=== PATIENT | male | born 1955 | race Caucasian/White ===

== ENCOUNTER 2019-03-08 15:14 | Inpatient (IN) | payer SELFPAY ==
[~2019-03-08] VITALS: Ht 188 cm; Wt 66.5 kg
[2019-03-08] MEDS ORDERED: SODIUM CHLORIDE 0.9% 1000ML 1,000 ML IV ONE ×2 (15:46→16:39)
[2019-03-08 15:50] LABS: BASOPHILS % (AUTO) 0.6 % (0.0-5.0); EOSINOPHILS % (AUTO) 7.7 % (0.0-8.0); HEMATOCRIT 40.7 % (42-54); LYMPHOCYTES % (AUTO) 6.5 % (21.0-51.0); MEAN CORPUSCULAR HEMOGLOBIN 33.1 pg (27.0-33.0); MEAN CORPUSCULAR HGB CONC 34.2 g/dL (32.0-36.0); MEAN CORPUSCULAR VOLUME 96.8 fL (79-99); MONOCYTES % (AUTO) 8.2 % (3.0-13.0); NUCLEATED RED BLOOD CELLS 0.1 % (0.0-0.19); PLATELET COUNT (AUTO) 271 K/uL (130-400); RED BLOOD CELL COUNT(AUTO) 4.21 MIL/uL (4.50-6.20); RED CELL DISTRIBUTION WIDTH 12.3 % (11.0-15.5); WHITE BLOOD COUNT (AUTO) 8.5 K/uL (4.8-10.8)
[2019-03-08 16:02] LABS: CREATININE 0.9 mg/dL (0.5-1.5)
[2019-03-08 16:03] LABS: INR 1.09 (0.85-1.15); PARTIAL THROMBOPLASTIN TIME 28.4 SEC (26.3-35.5); PROTHROMBIN TIME 11.4 SEC (9.6-11.6)
[2019-03-08 16:07] LABS: ALBUMIN 3.6 g/dL (3.5-5.0); BILIRUBIN,TOTAL 0.9 mg/dL (0.2-1.0); TOTAL PROTEIN, SERUM 7.2 g/dL (6.0-8.3)
[2019-03-08] MEDS ORDERED: ONDANSETRON HCL 4 MG/2 ML VIAL ONE ×2 (16:41→16:44)
[2019-03-08] MEDS ORDERED: MORPHINE SULFATE 4 MG/1ML SYG ONE ×2 (16:41→16:44)
[2019-03-08] MEDS ORDERED: IOHEXOL-350 75 ML VIAL IV ONE (17:36)
[2019-03-08] MEDS ORDERED: ONDANSETRON HCL 4 MG/2 ML VIAL IV PRN (18:45)
[2019-03-08] MEDS: FAMOTIDINE/PF 20 MG/2 ML VIAL IV SCH (21:00)
[2019-03-09 00:50] VITALS: BP 142/79
[2019-03-09 06:37] LABS: BASOPHILS % (AUTO) 0.8 % (0.0-5.0); EOSINOPHILS % (AUTO) 9.7 % (0.0-8.0); HEMATOCRIT 35.1 % (42-54); LYMPHOCYTES % (AUTO) 10.8 % (21.0-51.0); MEAN CORPUSCULAR HGB CONC 34.2 g/dL (32.0-36.0); MEAN CORPUSCULAR VOLUME 96.6 fL (79-99); MONOCYTES % (AUTO) 11.3 % (3.0-13.0); NEUTROPHILS % (AUTO) 67.4 % (40.0-77.0); PLATELET COUNT (AUTO) 251 K/uL (130-400); RED BLOOD CELL COUNT(AUTO) 3.64 MIL/uL (4.50-6.20); RED CELL DISTRIBUTION WIDTH 12.2 % (11.0-15.5); WHITE BLOOD COUNT (AUTO) 6.6 K/uL (4.8-10.8)
[2019-03-09 06:57] LABS: CREATININE 0.8 mg/dL (0.5-1.5); POTASSIUM 3.9 mmol/L (3.5-5.1)
[2019-03-09 07:30] VITALS: BP 122/69
[2019-03-09] MEDS: FAMOTIDINE/PF 20 MG/2 ML VIAL IV SCH ×2 (08:58→21:31)
[2019-03-09] MEDS: ENOXAPARIN SODIUM 40 MG/0.4 ML SYRINGE SQ SCH (08:59)
[2019-03-09] MEDS: SODIUM CHLORIDE 0.9% 1000ML 1,000 ML IV SCH ×4 (09:00→18:32)
[2019-03-09 11:00] VITALS: BP 119/69
[2019-03-09] MEDS: MORPHINE SULFATE 2 MG/ML 1ML SYG IVP PRN (15:16)
[2019-03-09 16:00] VITALS: BP 117/69
[2019-03-09 20:26] VITALS: BP 139/88
[2019-03-09 23:46] VITALS: BP 133/78
[2019-03-10 03:24] VITALS: BP 122/73
[2019-03-10 05:13] LABS: HEMATOCRIT 33.2 % (42-54); MEAN CORPUSCULAR HGB CONC 33.7 g/dL (32.0-36.0); MEAN CORPUSCULAR VOLUME 97.9 fL (79-99); PLATELET COUNT (AUTO) 201 K/uL (130-400); RED BLOOD CELL COUNT(AUTO) 3.39 MIL/uL (4.50-6.20); RED CELL DISTRIBUTION WIDTH 12.3 % (11.0-15.5); WHITE BLOOD COUNT (AUTO) 5.2 K/uL (4.8-10.8)
[2019-03-10 05:35] LABS: CREATININE 0.7 mg/dL (0.5-1.5); POTASSIUM 3.7 mmol/L (3.5-5.1)
[2019-03-10 05:38] LABS: BASOPHILS % (MANUAL) 1 % (0-2); EOSINOPHILS % (MANUAL) 21 % (1-6); LYMPHOCYTES % (MANUAL) 9 % (22-44); MAN.DIFF COMMENT-IMPRESSION MANUAL DIFFERENTIAL; METAMYELOCYTES % 1 % (0-0); MONOCYTES % (MANUAL) 8 % (2-9); SEGMENTED NEUTROPHILS % 60 % (40-70)
[2019-03-10 05:39] LABS: PLATELET MORPHOLOGY COMMENT ADEQUATE
[2019-03-10] MEDS ORDERED: GADODIAMIDE 10 MMOL/20 ML VIAL IV ONE (08:19)
[2019-03-10] MEDS: FAMOTIDINE/PF 20 MG/2 ML VIAL IV SCH ×2 (08:21→21:18)
[2019-03-10 08:22] VITALS: BP 128/77
[2019-03-10] MEDS: SODIUM CHLORIDE 0.9% 1000ML 1,000 ML IV SCH ×3 (08:22→18:32)
--- NOTE | 2019-03-10 09:33 | NUR ---
pt signed consent for MRCP, he stated understanding to all assosciated risk, stating he has had one before and did not have any reactions to the dye; pt picked up by wheelchair and taken to MRI department.
[2019-03-10] MEDS: MORPHINE SULFATE 2 MG/ML 1ML SYG IVP PRN (10:55)
[2019-03-10 12:20] VITALS: BP 140/79
[2019-03-10 16:43] VITALS: BP 139/81
[2019-03-10] MEDS: ENOXAPARIN SODIUM 40 MG/0.4 ML SYRINGE SQ SCH (17:37)
[2019-03-10 18:16] LABS: CHOLESTEROL 110 mg/dL (<200); TRIGLYCERIDES 78 mg/dL (30-200)
[2019-03-10 20:37] VITALS: BP 149/88
[2019-03-10 23:29] VITALS: BP 133/80
[2019-03-11] MEDS: SODIUM CHLORIDE 0.9% 1000ML 1,000 ML IV SCH (01:16)
[2019-03-11 03:39] VITALS: BP 148/84
[2019-03-11 04:56] LABS: BASOPHILS % (AUTO) 1.1 % (0.0-5.0); EOSINOPHILS % (AUTO) 15.6 % (0.0-8.0); HEMATOCRIT 31.5 % (42-54); LYMPHOCYTES % (AUTO) 16.4 % (21.0-51.0); MEAN CORPUSCULAR HEMOGLOBIN 32.8 pg (27.0-33.0); MEAN CORPUSCULAR HGB CONC 34.1 g/dL (32.0-36.0); MEAN CORPUSCULAR VOLUME 96.2 fL (79-99); MONOCYTES % (AUTO) 10.9 % (3.0-13.0); PLATELET COUNT (AUTO) 201 K/uL (130-400); RED BLOOD CELL COUNT(AUTO) 3.28 MIL/uL (4.50-6.20); WHITE BLOOD COUNT (AUTO) 4.6 K/uL (4.8-10.8)
[2019-03-11 05:29] LABS: ALBUMIN 2.3 g/dL (3.5-5.0); BILIRUBIN,TOTAL 0.5 mg/dL (0.2-1.0); CREATININE 0.7 mg/dL (0.5-1.5); MAGNESIUM 1.5 mg/dL (1.80-2.40); PHOSPHORUS 2.1 mg/dL (2.5-4.9); POTASSIUM 3.5 mmol/L (3.5-5.1); TOTAL PROTEIN, SERUM 5.3 g/dL (6.0-8.3)
[2019-03-11 08:35] VITALS: BP 142/82
--- NOTE | 2019-03-11 09:30 | NUR ---
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
[2019-03-11] MEDS: FAMOTIDINE/PF 20 MG/2 ML VIAL IV SCH (09:39)
[2019-03-11] MEDS: ENOXAPARIN SODIUM 40 MG/0.4 ML SYRINGE SQ SCH (09:40)
[2019-03-11 11:59] VITALS: BP 141/81
[2019-03-11] MEDS ORDERED: THIA100T75 PO (11:59)
[2019-03-11] MEDS ORDERED: FOLI1TAB15 PO (11:59)
--- NOTE | 2019-03-11 15:28 | NUR ---
pt's iv access removed; pt and stated understanding of all d/c instructions and after care for pancreatitis; i included information of stopping alchol drinking. pt left ambulating with his , pt given script for vitamis.
== END 2019-03-11 15:20 | disposition home or self-care (01) | DRG 438 ==
LOC: EDH 15:14 → EDHIP 15:15 → 3DH 03-09 01:09
PROVIDERS: ADMIT Family Medicine; ATTEND Family Medicine
DX: K86.3 Pseudocyst of pancreas (principal); K85.20 Alcohol induced acute pancreatitis without necrosis or infection; E86.1 Hypovolemia; F10.20 Alcohol dependence, uncomplicated; K57.30 Diverticulosis of large intestine without perforation or abscess without bleeding; K70.31 Alcoholic cirrhosis of liver with ascites; K76.0 Fatty (change of) liver, not elsewhere classified; K86.1 Other chronic pancreatitis
CPT/HCPCS: 36415; 74177; 74183; 76705; 80048; 80053; 80061; 82150; 82465; 82550; 83605; 83690; 83735; 84100; 84478; 84484; 85025; 85610; 85730; 93005; A9579; G0378; J1650; J2270; J2405; J3490; J7030; Q9967

== ENCOUNTER 2019-03-22 11:03 | Inpatient (IN) | payer OTHER ==
[~2019-03-22] VITALS: Ht 185.4 cm; Wt 68.5 kg
[~2019-03-22 11:03] MED LIST: FOLI1TAB15 PO; THIA100T75 PO
[2019-03-22] MEDS ORDERED: SODIUM CHLORIDE 0.9% 1000ML 1,000 ML IV ONE ×2 (11:12→14:53)
[2019-03-22 11:16] LABS: APPEARANCE,URINE Clear (CLEAR); BILIRUBIN,URINE Negative (NEGATIVE); COLOR,URINE Yellow (YELLOW); GLUCOSE, URINE (UA) Negative (NEGATIVE); KETONES,URINE Negative (NEGATIVE); LEUKOCYTE ESTERASE ,URINE Negative (NEGATIVE); NITRATE,URINE Negative (NEGATIVE); OCCULT BLOOD,URINE Negative (NEGATIVE); PROTEIN,URINE Trace mg/dL (NEGATIVE)
[2019-03-22 11:32] LABS: BASOPHILS % (AUTO) 0.2 % (0.0-5.0); EOSINOPHILS % (AUTO) 10.6 % (0.0-8.0); HEMATOCRIT 37.2 % (42-54); LYMPHOCYTES % (AUTO) 6.3 % (21.0-51.0); MEAN CORPUSCULAR HEMOGLOBIN 31.9 pg (27.0-33.0); MEAN CORPUSCULAR HGB CONC 33.9 g/dL (32.0-36.0); MEAN CORPUSCULAR VOLUME 94.2 fL (79-99); NEUTROPHILS % (AUTO) 75.9 % (40.0-77.0); PLATELET COUNT (AUTO) 385 K/uL (130-400); RED BLOOD CELL COUNT(AUTO) 3.95 MIL/uL (4.50-6.20); RED CELL DISTRIBUTION WIDTH 12.5 % (11.0-15.5); WHITE BLOOD COUNT (AUTO) 8.7 K/uL (4.8-10.8)
[2019-03-22 11:40] LABS: POTASSIUM 3.9 mmol/L (3.5-5.1)
[2019-03-22 11:44] LABS: ALBUMIN 2.9 g/dL (3.5-5.0); BILIRUBIN,TOTAL 0.9 mg/dL (0.2-1.0); TOTAL PROTEIN, SERUM 6.7 g/dL (6.0-8.3)
[2019-03-22 12:06] LABS: INR 1.1 (0.85-1.15); PARTIAL THROMBOPLASTIN TIME 28.2 SEC (26.3-35.5); PROTHROMBIN TIME 11.5 SEC (9.6-11.6)
[2019-03-22] MEDS: SODIUM CHLORIDE 0.9% 1000ML 1,000 ML IV SCH ×3 (14:48→23:41)
[2019-03-22] MEDS ORDERED: MORPHINE SULFATE 2 MG/ML 1ML SYG ONE (14:52)
[2019-03-22] MEDS ORDERED: DIPHENHYDRAMINE HCL 25 MG CAPSULE PO PRN (15:00)
[2019-03-22] MEDS ORDERED: MAG HYDROX/AL HYDROX/SIMETH ES 30 ML SUSP UDCUP PO PRN (15:00)
[2019-03-22] MEDS ORDERED: NITROGLYCERIN 0.4 MG SL TAB SL PRN (15:00)
[2019-03-22] MEDS ORDERED: DiphenhydrAMINE HCL 50 MG/ML VIAL IV PRN (15:00)
[2019-03-22] MEDS ORDERED: KETOROLAC TROMETHAMINE 15MG/ML IV PRN (15:00)
[2019-03-22] MEDS ORDERED: GUAIFENESIN-DM 200/20 MG 10 ML PO PRN (15:00)
[2019-03-22] MEDS ORDERED: ZOLPIDEM TARTRATE 5 MG TAB PO PRN (15:00)
[2019-03-22] MEDS ORDERED: LACTULOSE 20 GM/30 ML UDCUP PO PRN (15:00)
[2019-03-22] MEDS ORDERED: ACETAMINOPHEN 325 MG TAB PO PRN ×2 (15:00)
[2019-03-22 18:35] VITALS: BP 119/72
--- NOTE | 2019-03-22 18:35 | NUR ---
NOTE ARRIVED FROM ER AT THIS TIME. HE IS WITH SOME ABDOMINAL DISCOMFORT. DX PANCREATITIS. THIS IS THE SAME THING HE HAD LAST MONTH HE SAYS. WAS SEEN THE LAST WEEK OF AND CAME BACK TODAY WITH ABDOMINAL PAIN AGAIN. LIPASE ELEVATED. HE WILL REMAIN NPO FOR NOW AND WITH ORDERS FOR IVF AND PAIN MEDICATION PRN. OTHERWISE DENIES ANY OTHER PROBLEMS AT THIS TIME. REFER TO CHART FOR ORDERS.
[2019-03-22 19:31] VITALS: BP 104/62
[2019-03-22] MEDS: FAMOTIDINE/PF 20 MG/2 ML VIAL IV SCH (21:33)
[2019-03-22 23:52] VITALS: BP 109/49
[2019-03-23 03:30] VITALS: BP 112/66
[2019-03-23] MEDS: SODIUM CHLORIDE 0.9% 1000ML 1,000 ML IV SCH ×3 (06:38→19:23)
[2019-03-23 07:21] LABS: BASOPHILS % (AUTO) 0.6 % (0.0-5.0); EOSINOPHILS % (AUTO) 18.5 % (0.0-8.0); HEMATOCRIT 29.9 % (42-54); LYMPHOCYTES % (AUTO) 7.7 % (21.0-51.0); MEAN CORPUSCULAR HEMOGLOBIN 31.9 pg (27.0-33.0); MEAN CORPUSCULAR VOLUME 94.1 fL (79-99); MONOCYTES % (AUTO) 7.9 % (3.0-13.0); NEUTROPHILS % (AUTO) 65.3 % (40.0-77.0); PLATELET COUNT (AUTO) 278 K/uL (130-400); RED BLOOD CELL COUNT(AUTO) 3.17 MIL/uL (4.50-6.20); RED CELL DISTRIBUTION WIDTH 13.1 % (11.0-15.5)
[2019-03-23 07:38] LABS: ALBUMIN 2.2 g/dL (3.5-5.0); BILIRUBIN,TOTAL 0.7 mg/dL (0.2-1.0); CREATININE 0.8 mg/dL (0.5-1.5); POTASSIUM 3.9 mmol/L (3.5-5.1); TOTAL PROTEIN, SERUM 5.7 g/dL (6.0-8.3)
[2019-03-23 08:00] VITALS: BP 119/69
[2019-03-23] MEDS: POLYETHYLENE GLYCOL 3350 17 GM POWD.PACK PO SCH (10:08)
[2019-03-23] MEDS: ENOXAPARIN SODIUM 40 MG/0.4 ML SYRINGE SQ SCH (10:09)
[2019-03-23] MEDS: FAMOTIDINE/PF 20 MG/2 ML VIAL IV SCH ×2 (10:09→21:24)
[2019-03-23 11:00] VITALS: BP 118/72
[2019-03-23 16:00] VITALS: BP_SYST 112; BP_SYST 141; BP_DIAS 72; BP_DIAS 89
--- NOTE | 2019-03-23 17:11 | NUR ---
cm note met with patient and states resides at home with spouse/life partner. pt independent with adls/self care, and ambulation. no dme. drives. dc plan is back to home. provided rx assist cards, [facility] is working with [facility] for possible assistance. Addendum: 03/23/19 at 1712 by IVANA TURCIOS CM Amended: Links added.
[2019-03-23 20:00] VITALS: BP 117/72
[2019-03-23 23:38] VITALS: BP 105/64
[2019-03-24] MEDS: SODIUM CHLORIDE 0.9% 1000ML 1,000 ML IV SCH ×3 (00:06→21:25)
[2019-03-24 04:00] VITALS: BP 115/71
[2019-03-24 05:52] LABS: HEMATOCRIT 26.3 % (42-54); MEAN CORPUSCULAR HEMOGLOBIN 32.3 pg (27.0-33.0); MEAN CORPUSCULAR HGB CONC 34.1 g/dL (32.0-36.0); MEAN CORPUSCULAR VOLUME 94.6 fL (79-99); PLATELET COUNT (AUTO) 240 K/uL (130-400); RED BLOOD CELL COUNT(AUTO) 2.78 MIL/uL (4.50-6.20); WHITE BLOOD COUNT (AUTO) 5.5 K/uL (4.8-10.8)
[2019-03-24 08:00] VITALS: BP 117/66
[2019-03-24] MEDS: POLYETHYLENE GLYCOL 3350 17 GM POWD.PACK PO SCH ×2 (09:00→09:10)
[2019-03-24] MEDS: ENOXAPARIN SODIUM 40 MG/0.4 ML SYRINGE SQ SCH (09:10)
[2019-03-24] MEDS: FAMOTIDINE/PF 20 MG/2 ML VIAL IV SCH ×2 (09:11→21:25)
[2019-03-24 12:00] VITALS: BP 116/72
--- NOTE | 2019-03-24 15:57 | NUR ---
DIET EDUCATION ZULMA PROVIDED PANCREATITIS DIET EDUCATION TO PT. ZULMA REVIEWED REFERENCE MATERIALS WITH PT. PT WITH MULTIPLE QUESTIONS. RD ANSWERED ALL QUESTIONS. RD ENCOURAGED TO NOTIFY QUESTIONS OR CONCERNS ARISE. RD TO FOLLOW UP. Addendum: 03/24/19 at [address] Amended: Links added.
[2019-03-24 16:00] VITALS: BP 122/67
[2019-03-24 19:10] VITALS: BP 127/74
[2019-03-24 23:35] VITALS: BP 131/73
[2019-03-25 03:32] VITALS: BP 122/71
[2019-03-25] MEDS: SODIUM CHLORIDE 0.9% 1000ML 1,000 ML IV SCH (04:27)
[2019-03-25] MEDS: FAMOTIDINE/PF 20 MG/2 ML VIAL IV SCH (07:53)
[2019-03-25 07:55] VITALS: BP 123/65
[2019-03-25] MEDS: POLYETHYLENE GLYCOL 3350 17 GM POWD.PACK PO SCH (09:00)
[2019-03-25] MEDS: ENOXAPARIN SODIUM 40 MG/0.4 ML SYRINGE SQ SCH (09:00)
[2019-03-25 12:00] VITALS: BP 102/65
--- NOTE | 2019-03-25 15:05 | NUR ---
DISCHARGE ORDERS PLACED BY DAYRON DAVIS. PER SUSAN, DO NOT DISCHARGE UNTIL PATIENT SEEN BY DR. WESTBROOK.
--- NOTE | 2019-03-25 16:19 | NUR ---
DISCHARGE PATIENT GIVEN DISCHARGE INSTRUCTIONS VIA TEACH BACK. 22G PIV TO RW DISCONTINUED, TIP INTACT. PATIENT TO FOLLOW UP WITH LUISA BARNETT FOR GI CONSULT REFERRAL. NEW DX OF LIVER CIRRHOSIS. PATIENT TO CONTINUE WITH SOFT AND LOW FAT DIET. PATIENT STABLE AT THIS TIME. PATIENT WALKED DOWN TO [facility] ACCOMPANIED BY SUNNY COLLINS.
[2019-03-31] MEDS ORDERED: KETO10TA2 PO ×2 (12:21)
[2019-05-13] MEDS ORDERED: L.AC1CAP6 PO (13:38)
== END 2019-03-25 16:25 | disposition home or self-care (01) | DRG 439 ==
LOC: EDH 11:03 → EDHIP 11:04 → 4BH 18:38
PROVIDERS: ADMIT Family Medicine; ATTEND Family Medicine
DX: K85.20 Alcohol induced acute pancreatitis without necrosis or infection (principal); K86.3 Pseudocyst of pancreas; E44.1 Mild protein-calorie malnutrition; Z68.1 Body mass index [BMI] 19.9 or less, adult; F10.10 Alcohol abuse, uncomplicated; M10.9 Gout, unspecified; K70.31 Alcoholic cirrhosis of liver with ascites; K86.0 Alcohol-induced chronic pancreatitis; Z91.19 Patient's noncompliance with other medical treatment and regimen; Z80.9 Family history of malignant neoplasm, unspecified
CPT/HCPCS: 36415; 71045; 74176; 80053; 81003; 82150; 82550; 83690; 84484; 85025; 85027; 85610; 85730; 93005; G0378; J1650; J3490; J7030

== ENCOUNTER 2019-03-28 14:25 | Inpatient (IN) | payer OTHER ==
[~2019-03-28] VITALS: Ht 185.4 cm; Wt 62.1 kg
[2019-03-28 15:17] LABS: BASOPHILS % (AUTO) 0.4 % (0.0-5.0); EOSINOPHILS % (AUTO) 15.5 % (0.0-8.0); LYMPHOCYTES % (AUTO) 8.8 % (21.0-51.0); MEAN CORPUSCULAR HEMOGLOBIN 31.9 pg (27.0-33.0); MEAN CORPUSCULAR VOLUME 93.8 fL (79-99); MONOCYTES % (AUTO) 7.3 % (3.0-13.0); PLATELET COUNT (AUTO) 321 K/uL (130-400); RED BLOOD CELL COUNT(AUTO) 3.41 MIL/uL (4.50-6.20); RED CELL DISTRIBUTION WIDTH 13.5 % (11.0-15.5); WHITE BLOOD COUNT (AUTO) 7.1 K/uL (4.8-10.8)
[2019-03-28 15:28] LABS: INR 1.09 (0.85-1.15); PARTIAL THROMBOPLASTIN TIME 30.9 SEC (26.3-35.5); PROTHROMBIN TIME 11.4 SEC (9.6-11.6)
[2019-03-28 15:29] LABS: CREATININE 0.8 mg/dL (0.5-1.5); POTASSIUM 3.7 mmol/L (3.5-5.1)
[2019-03-28 15:37] LABS: ALBUMIN 2.9 g/dL (3.5-5.0); BILIRUBIN,DIRECT 0.1 mg/dL (0.0-0.3); BILIRUBIN,TOTAL 0.4 mg/dL (0.2-1.0); TOTAL PROTEIN, SERUM 6.9 g/dL (6.0-8.3)
[2019-03-28] MEDS ORDERED: SODIUM CHLORIDE 0.9% 1000ML 1,000 ML IV ONE ×2 (15:53→17:12)
[2019-03-28] MEDS ORDERED: ONDANSETRON HCL 4 MG/2 ML VIAL ONE (16:24)
[2019-03-28] MEDS ORDERED: MORPHINE SULFATE 4 MG/1ML SYG ONE (16:24)
[2019-03-28] MEDS ORDERED: KETOROLAC TROMETHAMINE 30MG/ML ONE (16:24)
[2019-03-28] MEDS ORDERED: ACETAMINOPHEN 650 MG SUPPOSITORY RC PRN (16:45)
[2019-03-28] MEDS ORDERED: ONDANSETRON HCL 4 MG/2 ML VIAL IVP PRN (16:45)
[2019-03-28] MEDS ORDERED: MORPHINE SULFATE 4 MG/1ML SYG IV PRN (16:45)
[2019-03-28] MEDS ORDERED: MORPHINE SULFATE 2 MG/ML 1ML SYG IV PRN (16:45)
[2019-03-28] MEDS ORDERED: IOHEXOL-350 75 ML VIAL IV ONE (17:04)
[2019-03-28 17:39] LABS: APPEARANCE,URINE Clear (CLEAR); BILIRUBIN,URINE Negative (NEGATIVE); COLOR,URINE Yellow (YELLOW); GLUCOSE, URINE (UA) Negative (NEGATIVE); KETONES,URINE Negative (NEGATIVE); LEUKOCYTE ESTERASE ,URINE Negative (NEGATIVE); NITRATE,URINE Negative (NEGATIVE); OCCULT BLOOD,URINE Negative (NEGATIVE); PROTEIN,URINE Negative (NEGATIVE); UROBILINOGEN,URINE 0.2 mg/dL (0.2-1.0)
[2019-03-28 18:35] VITALS: BP 133/81
--- NOTE | 2019-03-28 20:00 | NUR ---
Regarding GI consult requested Jy[employer] workers compensation legal secretary to page Dr. Crowe. called direct on cell phone. left voicemail regarding consult. pending callback
[2019-03-28] MEDS: FAMOTIDINE/PF 20 MG/2 ML VIAL IV SCH (21:59)
[2019-03-28] MEDS: SODIUM CHLORIDE 0.9% 1000ML 1,000 ML IV SCH (21:59)
[2019-03-29] VITALS: BP 117/72
[2019-03-29 04:00] VITALS: BP 98/64
[2019-03-29] MEDS: SODIUM CHLORIDE 0.9% 1000ML 1,000 ML IV SCH ×3 (05:36→23:52)
[2019-03-29 05:39] LABS: BASOPHILS % (AUTO) 0.8 % (0.0-5.0); EOSINOPHILS % (AUTO) 22.5 % (0.0-8.0); HEMATOCRIT 27.1 % (42-54); LYMPHOCYTES % (AUTO) 13.5 % (21.0-51.0); MEAN CORPUSCULAR HEMOGLOBIN 31.3 pg (27.0-33.0); MEAN CORPUSCULAR HGB CONC 33.7 g/dL (32.0-36.0); MEAN CORPUSCULAR VOLUME 92.9 fL (79-99); MONOCYTES % (AUTO) 8.4 % (3.0-13.0); NEUTROPHILS % (AUTO) 54.8 % (40.0-77.0); PLATELET COUNT (AUTO) 256 K/uL (130-400); RED BLOOD CELL COUNT(AUTO) 2.92 MIL/uL (4.50-6.20); RED CELL DISTRIBUTION WIDTH 13.1 % (11.0-15.5); WHITE BLOOD COUNT (AUTO) 5.2 K/uL (4.8-10.8)
[2019-03-29 05:52] LABS: ALBUMIN 2.1 g/dL (3.5-5.0); BILIRUBIN,TOTAL 0.3 mg/dL (0.2-1.0); CREATININE 0.8 mg/dL (0.5-1.5); POTASSIUM 3.6 mmol/L (3.5-5.1); TOTAL PROTEIN, SERUM 5.4 g/dL (6.0-8.3)
[2019-03-29 07:30] VITALS: BP 117/78
--- NOTE | 2019-03-29 08:25 | NUR ---
PAGED DR. PRITI MICHEL PAGED REGARDING CONSULT.
--- NOTE | 2019-03-29 08:45 | NUR ---
UMBERTO SHIPMAN MD TO FOLLOW-UP ON CONSULT. Addendum: 03/29/19 at 0900 by SEVEN PAEZ RN RN DISREGARD THIS NURSE NOTE, ENTERED IN ERROR, THIS NOTE INTENDED FOR ANOTHER PATIENT.
--- NOTE | 2019-03-29 09:37 | NUR ---
DR. MARCOS SPOKE TO MD REGARDING CONSULT. DR. MARCOS TOLD ME SHE IS FAMILIAR WITH PATIENT. MD SAID SHE WOULD LOOK OVER HIS CHART AND BE IN TO SEE PATIENT TODAY 03/29/19.
[2019-03-29] MEDS: FAMOTIDINE/PF 20 MG/2 ML VIAL IV SCH ×2 (09:54→20:58)
[2019-03-29] MEDS: ENOXAPARIN SODIUM 30 MG/0.3 ML SQ SCH (09:54)
[2019-03-29 11:00] VITALS: BP 118/71
[2019-03-29 16:00] VITALS: BP 130/81
--- NOTE | 2019-03-29 17:11 | NUR ---
INITIAL: Met with pt this afternoon to discuss dcp. Per pt he lives w his girlfriend Yamile. He is independent w ambulation and ADLs. He does not own any DME or receive services. Per pt he feels safe and comfortable to return home at ct. He declines low income packet, states he was recently discharged from [facility] and has packet @ home. CM to continue to follow and wait for Md recommendations. Addendum: 03/29/19 at 1714 by JIMI WALKER Amended: Links added.
--- NOTE | 2019-03-29 19:50 | NUR ---
PM Assessment Received pt alone in room just came back from ambulating around the unit, with NS at 75cc/hr infusing well, routine assessment done, plan of care discuss, reminded that we are still pending to collect stool for Pancreatic Elastase test. Per pt stated he did have a BM earlier x 2 at 1700 & 1800 that no one had advise him anything. Per pt stated that per Dr. Matos he might possibly needing some gastric enzyme supplements reason for the stool test. Pt currently denies discomfort.
[2019-03-29 20:00] VITALS: BP 102/50
[2019-03-29] MEDS ORDERED: SIMETHICONE 80 MG TAB.CHEW ONE (20:31)
[2019-03-29] MEDS: SIMETHICONE 80 MG TAB.CHEW PO SCH (20:59)
[2019-03-30] VITALS: BP 134/72
[2019-03-30 04:00] VITALS: BP 126/76
[2019-03-30] MEDS: SIMETHICONE 80 MG TAB.CHEW PO SCH ×3 (05:58→20:06)
[2019-03-30 07:30] VITALS: BP 131/71
[2019-03-30 07:43] LABS: BASOPHILS % (AUTO) 1.2 % (0.0-5.0); EOSINOPHILS % (AUTO) 24.6 % (0.0-8.0); HEMATOCRIT 29.7 % (42-54); LYMPHOCYTES % (AUTO) 11.8 % (21.0-51.0); MEAN CORPUSCULAR HEMOGLOBIN 30.9 pg (27.0-33.0); MEAN CORPUSCULAR HGB CONC 33.2 g/dL (32.0-36.0); MONOCYTES % (AUTO) 6.3 % (3.0-13.0); NEUTROPHILS % (AUTO) 56.1 % (40.0-77.0); PLATELET COUNT (AUTO) 291 K/uL (130-400); RED BLOOD CELL COUNT(AUTO) 3.19 MIL/uL (4.50-6.20); RED CELL DISTRIBUTION WIDTH 13.3 % (11.0-15.5); WHITE BLOOD COUNT (AUTO) 5.3 K/uL (4.8-10.8)
[2019-03-30] MEDS: ENOXAPARIN SODIUM 30 MG/0.3 ML SQ SCH (08:50)
[2019-03-30] MEDS: FAMOTIDINE/PF 20 MG/2 ML VIAL IV SCH ×2 (08:50→20:05)
[2019-03-30] MEDS: SODIUM CHLORIDE 0.9% 1000ML 1,000 ML IV SCH ×2 (08:51→18:32)
[2019-03-30 08:55] LABS: CREATININE 0.9 mg/dL (0.5-1.5)
[2019-03-30 09:23] LABS: POTASSIUM 3.5 mmol/L (3.5-5.1)
[2019-03-30 11:00] VITALS: BP 139/79
[2019-03-30 16:00] VITALS: BP 132/69
[2019-03-30 20:00] VITALS: BP 125/71
[2019-03-31] VITALS: BP 122/72
[2019-03-31 04:00] VITALS: BP 120/72
[2019-03-31] MEDS: SODIUM CHLORIDE 0.9% 1000ML 1,000 ML IV SCH (05:01)
[2019-03-31] MEDS: SIMETHICONE 80 MG TAB.CHEW PO SCH (05:01)
[2019-03-31 08:00] VITALS: BP 113/81
[2019-03-31] MEDS: ENOXAPARIN SODIUM 30 MG/0.3 ML SQ SCH (08:32)
[2019-03-31] MEDS: FAMOTIDINE/PF 20 MG/2 ML VIAL IV SCH (08:32)
[2019-03-31 12:00] VITALS: BP 106/69
[2019-03-31] MEDS ORDERED: KETO10TA2 PO (12:21)
--- NOTE | 2019-03-31 13:10 | NUR ---
PATIENT GIVEN DISCHARGE INSTRUCTIONS AND EDUCATION ON FOLLOW UP APPOINTMENTS AND NEW PRESCRIBED MEDICATION. PATIENT VERBALIZED UNDERSTANDING OF ALL EDUCATION GIVEN VIA TEACH BACK. IV DISCONTINUED, CATHETER INTACT. NO DISTRESS NOTED UPON DISCHARGE. ALL BELONGINGS TAKEN WITH.
== END 2019-03-31 13:00 | disposition home or self-care (01) | DRG 439 ==
LOC: EDH 14:25 → OBSVTOIN 14:26 → EDHIP 14:26 → 3AH 20:04
PROVIDERS: ADMIT Internal Medicine; ATTEND Internal Medicine
DX: K85.90 Acute pancreatitis without necrosis or infection, unspecified (principal); K86.3 Pseudocyst of pancreas; K70.30 Alcoholic cirrhosis of liver without ascites; K75.9 Inflammatory liver disease, unspecified; F10.10 Alcohol abuse, uncomplicated
CPT/HCPCS: 36415; 74160; 80048; 80053; 80076; 81003; 82150; 82550; 82656; 83690; 84484; 85025; 85610; 85730; 93005; G0378; J1650; J1885; J2270; J2405; J3490; J7030; Q9967

== ENCOUNTER 2019-05-14 06:11 | Day surgery (SDC) | payer OTHER, SELFPAY ==
[~2019-05-14] VITALS: Ht 186.7 cm; Wt 68.5 kg
[~2019-05-14 06:11] MED LIST changes: -FOLI1TAB15 PO; +L.AC1CAP6 PO; +SODIUM CHLORIDE 0.9% 1000ML 1,000 ML IV ONE
[2019-05-14 06:51] VITALS: BP 115/69
[2019-05-14] MEDS ORDERED: PROPOFOL 10 MG/ML 20ML VIAL IV ONE (07:41)
[2019-05-14 09:12] VITALS: BP 99/59
[2019-05-14 09:15] VITALS: BP 99/63
[2019-05-14 09:20] VITALS: BP 93/52
[2019-05-14 09:26] VITALS: BP 115/68
== END 2019-05-14 09:40 | disposition home or self-care (01) ==
LOC: ENDO 06:11 → DAH 06:11 → ENDO 09:40
PROVIDERS: ATTEND Internal Medicine
DX: R93.3 Abnormal findings on diagnostic imaging of other parts of digestive tract (principal); K31.89 Other diseases of stomach and duodenum; K86.9 Disease of pancreas, unspecified; Z79.899 Other long term (current) drug therapy; Z98.890 Other specified postprocedural states
CPT/HCPCS: 43237; A4215; A4221; A4222; A4223; A4606; A4620; A4663; J2704; J7030

== ENCOUNTER 2019-06-20 09:54 | Inpatient (IN) | payer OTHER, SELFPAY ==
[~2019-06-20] VITALS: Ht 185.4 cm; Wt 68.5 kg
[~2019-06-20 09:54] MED LIST changes: -SODIUM CHLORIDE 0.9% 1000ML 1,000 ML IV ONE
[2019-06-20] MEDS ORDERED: SODIUM CHLORIDE 0.9% 1000ML 1,000 ML IV ONE ×3 (10:17→12:00)
[2019-06-20 10:20] LABS: BASOPHILS % (AUTO) 0.4 % (0.0-5.0); EOSINOPHILS % (AUTO) 31.1 % (0.0-8.0); HEMATOCRIT 37.8 % (42-54); LYMPHOCYTES % (AUTO) 11.8 % (21.0-51.0); MEAN CORPUSCULAR HEMOGLOBIN 28.1 pg (27.0-33.0); MEAN CORPUSCULAR VOLUME 87.9 fL (79-99); MONOCYTES % (AUTO) 7.7 % (3.0-13.0); NEUTROPHILS % (AUTO) 48.5 % (40.0-77.0); PLATELET COUNT (AUTO) 437 K/uL (130-400); RED CELL DISTRIBUTION WIDTH 13.7 % (11.0-15.5); WHITE BLOOD COUNT (AUTO) 11.4 K/uL (4.8-10.8)
[2019-06-20 10:29] LABS: APPEARANCE,URINE Clear (CLEAR); BILIRUBIN,URINE Negative (NEGATIVE); COLOR,URINE Yellow (YELLOW); GLUCOSE, URINE (UA) Negative (NEGATIVE); KETONES,URINE Negative (NEGATIVE); LEUKOCYTE ESTERASE ,URINE Negative (NEGATIVE); NITRATE,URINE Negative (NEGATIVE); OCCULT BLOOD,URINE Negative (NEGATIVE); PROTEIN,URINE Negative (NEGATIVE)
[2019-06-20 10:32] LABS: AMPHET/METH SCREEN,URINE NEGATIVE (NEGATIVE); BARBITURATE SCREEN, URINE NEGATIVE (NEGATIVE); BENZODIAZEPINES SCREEN,URINE NEGATIVE (NEGATIVE); CANNABINOID SCREEN,URINE NEGATIVE (NEGATIVE); COCAINE SCREEN,URINE NEGATIVE (NEGATIVE); OPIATE SCREEN,URINE NEGATIVE (NEGATIVE); PHENCYCLIDINE SCREEN,URINE NEGATIVE (NEGATIVE)
[2019-06-20 10:32] LABS: INR 1.09 (0.85-1.15); PARTIAL THROMBOPLASTIN TIME 30.9 SEC (26.3-35.5); PROTHROMBIN TIME 11.4 SEC (9.6-11.6)
[2019-06-20 10:36] LABS: POTASSIUM 4.1 mmol/L (3.5-5.1)
[2019-06-20 10:44] LABS: ALBUMIN 3.3 g/dL (3.5-5.0); BILIRUBIN,TOTAL 0.7 mg/dL (0.2-1.0); TOTAL PROTEIN, SERUM 7.1 g/dL (6.0-8.3)
[2019-06-20] MEDS ORDERED: ONDANSETRON HCL 4 MG/2 ML VIAL ONE (11:04)
[2019-06-20] MEDS ORDERED: MORPHINE SULFATE 4 MG/1ML SYG ONE (11:04)
[2019-06-20 15:10] VITALS: BP 134/76
[2019-06-20] MEDS ORDERED: AMOX500C2 PO (16:44)
[2019-06-20] MEDS ORDERED: CLAR500T PO (16:44)
[2019-06-20] MEDS ORDERED: SUCR1TAB2 PO (16:44)
[2019-06-20] MEDS ORDERED: ESOM40CA PO (16:44)
[2019-06-20] MEDS ORDERED: NORT10CA2 PO (16:44)
[2019-06-20] MEDS: ONDANSETRON HCL 4 MG/2 ML VIAL IVP PRN (17:09)
[2019-06-20] MEDS: MORPHINE SULFATE 2 MG/ML 1ML SYG IVP PRN ×2 (17:10→23:52)
[2019-06-20] MEDS ORDERED: HYDROMORPHONE HCL 0.5 MG/0.5 ML ML ONE (19:34)
[2019-06-20] MEDS: FAMOTIDINE/PF 20 MG/2 ML VIAL IV SCH (19:38)
[2019-06-20] MEDS: SODIUM CHLORIDE 0.9% 1000ML 1,000 ML IV SCH (19:39)
[2019-06-20 19:47] VITALS: BP 134/78
[2019-06-20] MEDS ORDERED: HYDROMORPHONE HCL 0.5 MG/0.5 ML ML IVP ONE (20:45)
[2019-06-21] VITALS: BP 131/82
[2019-06-21 04:00] VITALS: BP 120/71
[2019-06-21] MEDS: MORPHINE SULFATE 2 MG/ML 1ML SYG IVP PRN ×4 (04:10→20:14)
[2019-06-21] MEDS: ONDANSETRON HCL 4 MG/2 ML VIAL IVP PRN ×3 (04:12→20:10)
[2019-06-21 05:54] LABS: HEMATOCRIT 33.3 % (42-54); MEAN CORPUSCULAR HGB CONC 31.2 g/dL (32.0-36.0); MEAN CORPUSCULAR VOLUME 89.8 fL (79-99); PLATELET COUNT (AUTO) 359 K/uL (130-400); RED BLOOD CELL COUNT(AUTO) 3.71 MIL/uL (4.50-6.20); RED CELL DISTRIBUTION WIDTH 13.7 % (11.0-15.5); WHITE BLOOD COUNT (AUTO) 10.1 K/uL (4.8-10.8)
[2019-06-21 06:09] LABS: ALBUMIN 2.6 g/dL (3.5-5.0); BILIRUBIN,TOTAL 0.8 mg/dL (0.2-1.0); CREATININE 0.8 mg/dL (0.5-1.5); POTASSIUM 4.2 mmol/L (3.5-5.1); TOTAL PROTEIN, SERUM 5.9 g/dL (6.0-8.3)
--- NOTE | 2019-06-21 07:44 | NUR ---
i have left a message on Dr Michelle Zavala cell phone to call me so that i can report lab results to him
[2019-06-21 08:00] VITALS: BP 134/76
[2019-06-21] MEDS: FAMOTIDINE/PF 20 MG/2 ML VIAL IV SCH ×2 (08:47→20:10)
[2019-06-21] MEDS: SODIUM CHLORIDE 0.9% 1000ML 1,000 ML IV SCH (08:55)
[2019-06-21 11:00] VITALS: BP 129/84
[2019-06-21] MEDS: CEFTRIAXONE SODIUM 1 GM IVP SCH (14:33)
[2019-06-21] MEDS: THIAMINE HCL 100 MG TABLET PO SCH (14:43)
--- NOTE | 2019-06-21 15:50 | NUR ---
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 NO INSURANCE PT STATES 'I AM DYING, I HAVE SO MUCH PAIN ALL THE TIME" LIVES W GIRLFRIEND ORION ASENCIO WHO WILL PROVIDE TRANSPORT HOME CM TO FOLLOW Addendum: 06/21/19 at 2046 by ODILON RODRIGUEZ RN CM Amended: Links added.
[2019-06-21 16:00] VITALS: BP 151/89
[2019-06-21] MEDS: SUCRALFATE 1 GM TABLET PO SCH ×2 (18:00→20:10)
[2019-06-21] MEDS: HYDROCODONE/ACETAMINOPHEN 5/325 MG TAB PO PRN (18:03)
[2019-06-21 19:30] VITALS: BP 151/80
[2019-06-21] MEDS: AMOXICILLIN 500 MG CAPSULE PO SCH (20:10)
[2019-06-21] MEDS: CLARITHROMYCIN 500 MG TABLET PO SCH (20:10)
[2019-06-21] MEDS: NORTRIPTYLINE HCL 10 MG PO SCH (20:19)
[2019-06-22] VITALS (7 sets, daily range): BP systolic 127–144; BP diastolic 74–92
[2019-06-22] MEDS: HYDROCODONE/ACETAMINOPHEN 5/325 MG TAB PO PRN ×4 (00:46→21:49)
[2019-06-22] MEDS: SODIUM CHLORIDE 0.9% 1000ML 1,000 ML IV SCH ×2 (03:50→09:16)
[2019-06-22 05:25] LABS: BASOPHILS % (AUTO) 0.5 % (0.0-5.0); EOSINOPHILS % (AUTO) 27.1 % (0.0-8.0); HEMATOCRIT 31.7 % (42-54); LYMPHOCYTES % (AUTO) 9.8 % (21.0-51.0); MEAN CORPUSCULAR HEMOGLOBIN 27.7 pg (27.0-33.0); MEAN CORPUSCULAR HGB CONC 31.2 g/dL (32.0-36.0); MEAN CORPUSCULAR VOLUME 88.5 fL (79-99); MONOCYTES % (AUTO) 8.6 % (3.0-13.0); NEUTROPHILS % (AUTO) 53.6 % (40.0-77.0); PLATELET COUNT (AUTO) 344 K/uL (130-400); RED BLOOD CELL COUNT(AUTO) 3.58 MIL/uL (4.50-6.20); RED CELL DISTRIBUTION WIDTH 13.6 % (11.0-15.5); WHITE BLOOD COUNT (AUTO) 10.4 K/uL (4.8-10.8)
[2019-06-22 05:43] LABS: ALBUMIN 2.3 g/dL (3.5-5.0); BILIRUBIN,TOTAL 0.4 mg/dL (0.2-1.0); CREATININE 0.7 mg/dL (0.5-1.5); TOTAL PROTEIN, SERUM 5.6 g/dL (6.0-8.3)
[2019-06-22] MEDS: SUCRALFATE 1 GM TABLET PO SCH ×4 (06:49→21:48)
--- NOTE | 2019-06-22 08:21 | NUR ---
i have left a message on dr Zavala cell phone in regards to consult; pending his call back
[2019-06-22] MEDS: CEFTRIAXONE SODIUM 1 GM IVP SCH (09:14)
[2019-06-22] MEDS: FAMOTIDINE/PF 20 MG/2 ML VIAL IV SCH ×2 (09:17→21:48)
[2019-06-22] MEDS: LACTOBACILLUS RHAMNOSUS GG 1 EACH CAP.SPRINK PO SCH (09:17)
[2019-06-22] MEDS: THIAMINE HCL 100 MG TABLET PO SCH (09:17)
[2019-06-22] MEDS: CLARITHROMYCIN 500 MG TABLET PO SCH ×2 (09:17→21:48)
[2019-06-22] MEDS: AMOXICILLIN 500 MG CAPSULE PO SCH ×2 (09:17→21:48)
--- NOTE | 2019-06-22 15:29 | NUR ---
RD NOTIFICATION PT WITH RECURRING PANCREATITIS. LABS REVIEWED. MEDS REVIEWED. SKIN IS INTACT. DIET: CLEAR LIQUIDS. PO INTAKE <25% AND HAS POOR PO. PT IN A LOT OF PAIN AT TIME OF VISIT AND ALSO STATED HE HAS H. PYLORI. HE CLAIMS TO HAVE SIGNIFICANT WEIGHT LOSS AND IS UNABLE TO EAT ADEQUATELY IN THE PAST 3 MONTHS. PT WITH NUTRITION RELATED PHYSICAL SIGNS OF MUSCLE AND FAT LOSS INDICATING PROTEIN/ CALORIE MALNUTRITION. RD DID NOT PROVIDED DIET AND NUTRITION EDUCATION AT THIS TIME DUE TO PT BEING IN SO MUCH PAIN. ADVANCE DIET TOLERATED WHEN MEDICALLY FEASIBLE RD WILL CONTINUE TO MONITOR AND FOLLOW UP, THANK YOU. Addendum: 06/22/19 at [address] Amended: Links added.
[2019-06-22] MEDS ORDERED: DIATR MEGLU/DIATRIZOATE SODIUM 30 ML BOTTLE ONE (16:03)
[2019-06-22] MEDS ORDERED: IOHEXOL-350 75 ML VIAL IV ONE (17:12)
[2019-06-22] MEDS: ONDANSETRON HCL 4 MG/2 ML VIAL IVP PRN (18:00)
[2019-06-22] MEDS: MORPHINE SULFATE 2 MG/ML 1ML SYG IVP PRN (18:05)
--- NOTE | 2019-06-22 18:34 | NUR ---
spoke to dr Juan Zavala on the phone and received order from him to call him tomorrow am w/ results of this evenings ct scan.
[2019-06-22] MEDS: NORTRIPTYLINE HCL 10 MG PO SCH (21:00)
[2019-06-23] VITALS (7 sets, daily range): BP systolic 122–138; BP diastolic 53–85
[2019-06-23 05:49] LABS: BASOPHILS % (AUTO) 0.4 % (0.0-5.0); EOSINOPHILS % (AUTO) 33.3 % (0.0-8.0); HEMATOCRIT 31.4 % (42-54); LYMPHOCYTES % (AUTO) 8.2 % (21.0-51.0); MEAN CORPUSCULAR HGB CONC 31.8 g/dL (32.0-36.0); MONOCYTES % (AUTO) 8.5 % (3.0-13.0); NEUTROPHILS % (AUTO) 49.1 % (40.0-77.0); PLATELET COUNT (AUTO) 338 K/uL (130-400); RED BLOOD CELL COUNT(AUTO) 3.57 MIL/uL (4.50-6.20); RED CELL DISTRIBUTION WIDTH 13.5 % (11.0-15.5); WHITE BLOOD COUNT (AUTO) 9.4 K/uL (4.8-10.8)
[2019-06-23 06:08] LABS: ALBUMIN 2.2 g/dL (3.5-5.0); CREATININE 0.7 mg/dL (0.5-1.5); POTASSIUM 3.7 mmol/L (3.5-5.1)
[2019-06-23] MEDS: SUCRALFATE 1 GM TABLET PO SCH ×4 (06:20→21:00)
[2019-06-23] MEDS: SODIUM CHLORIDE 0.9% 1000ML 1,000 ML IV SCH ×2 (06:20→19:34)
[2019-06-23 06:36] LABS: BILIRUBIN,TOTAL 0.4 mg/dL (0.2-1.0); TOTAL PROTEIN, SERUM 5.6 g/dL (6.0-8.3)
[2019-06-23] MEDS: MORPHINE SULFATE 2 MG/ML 1ML SYG IVP PRN ×3 (08:04→23:04)
[2019-06-23] MEDS: CLARITHROMYCIN 500 MG TABLET PO SCH ×2 (09:20→19:53)
[2019-06-23] MEDS: CEFTRIAXONE SODIUM 1 GM IVP SCH (09:20)
[2019-06-23] MEDS: THIAMINE HCL 100 MG TABLET PO SCH (09:20)
[2019-06-23] MEDS: LIPASE/PROTEASE/AMYLASE 5000/17000/24000 PO SCH ×3 (09:20→17:00)
[2019-06-23] MEDS: AMOXICILLIN 500 MG CAPSULE PO SCH ×2 (09:20→19:53)
[2019-06-23] MEDS: LACTOBACILLUS RHAMNOSUS GG 1 EACH CAP.SPRINK PO SCH (09:20)
[2019-06-23] MEDS: FAMOTIDINE/PF 20 MG/2 ML VIAL IV SCH ×2 (09:20→19:53)
--- NOTE | 2019-06-23 09:43 | NUR ---
PAGED DR. Michelle DORADO CT ABD/PELVIS RESULTS AVAILABLE. PAGED DR. Michelle DORADO TO REPORT RESULTS. AWAITING CALLBACK.
--- NOTE | 2019-06-23 11:12 | NUR ---
DR. Michelle DORADO'S OFFICE RECEIVED CALLBACK FROM DR. Michelle DORADO OFFICE STAFF [phone]. REPORTED PATIENTS CT ABD/PELVIS RESULTS, LFT RESULTS, AND LIPASE RESULTS. WAS TOLD THAT DR. Michelle DORADO WOULD BE INFORMED OF THESE RESULTS AND THAT MD WOULD CALL ME BACK.
[2019-06-23] MEDS: HYDROCODONE/ACETAMINOPHEN 5/325 MG TAB PO PRN ×2 (12:02→19:54)
--- NOTE | 2019-06-23 14:30 | NUR ---
DR. Michelle DORADO'S OFFICE SPOKE TO AZRA OF DR. Michelle DORADO'S OFFICE [phone]. ORDERS GIVEN FROM DR. Michelle DORADO.
--- NOTE | 2019-06-23 16:12 | NUR ---
U/S GD PARACENTESIS PROCEDURE PERFORMED BY DR. GUNN. PUNCTURE SITE RIGHT LOWER QUADRANT OF ABDOMEN AND PATIENT TOLERATED PROCEDURE WELL. TOTAL REMOVED 2.5 LITERS OF CLOUDY BLOOD TINGED FLUID. END OF PROCEDURE AT 1630. CATHETER REMOVED AND DRESSING APPLIED. NO BLEEDING NOTED. REPORT CALLED TO SARAH BUI. PT TRANSFERRED BACK TO ROOM 430 VIA W/C. PT STABLE, AAO X3, DROWSY, WITH NO C/O PAIN. SPECIMEN SENT TO LAB.
[2019-06-23 18:16] LABS: APPEARANCE BODY FLUID BLOODY (CLEAR); COLOR,BODY FLUID RED (LT YELLOW); SPECIMENTYPE,BODY FLUID ASCITES
[2019-06-23 18:17] LABS: BODY FLUID WBC 3689 /cu. mm.; TOTAL VOLUME,BODY FLUID 2500 mL
[2019-06-23 18:18] LABS: BODY FLUID RBC 88500 /cu. mm.
[2019-06-23 18:40] LABS: BF EOSINOPHIL 15 %; BF LYMPHOCYTE 22 %; BF MESOTHELIAL 12 %; BF MONOCYTE 6 %
[2019-06-23] MEDS: NORTRIPTYLINE HCL 10 MG PO SCH (21:00)
[2019-06-24] VITALS (28 sets, daily range): BP systolic 119–149; BP diastolic 66–82
[2019-06-24] MEDS: MORPHINE SULFATE 2 MG/ML 1ML SYG IVP PRN ×3 (03:43→18:16)
[2019-06-24 04:42] LABS: BASOPHILS % (AUTO) 0.7 % (0.0-5.0); EOSINOPHILS % (AUTO) 27.4 % (0.0-8.0); HEMATOCRIT 29.5 % (42-54); LYMPHOCYTES % (AUTO) 12.7 % (21.0-51.0); MEAN CORPUSCULAR HEMOGLOBIN 27.6 pg (27.0-33.0); MEAN CORPUSCULAR HGB CONC 31.9 g/dL (32.0-36.0); MEAN CORPUSCULAR VOLUME 86.5 fL (79-99); MONOCYTES % (AUTO) 8.2 % (3.0-13.0); NEUTROPHILS % (AUTO) 50.5 % (40.0-77.0); PLATELET COUNT (AUTO) 322 K/uL (130-400); RED BLOOD CELL COUNT(AUTO) 3.41 MIL/uL (4.50-6.20); RED CELL DISTRIBUTION WIDTH 13.5 % (11.0-15.5); WHITE BLOOD COUNT (AUTO) 7.3 K/uL (4.8-10.8)
[2019-06-24 05:24] LABS: BILIRUBIN,TOTAL 0.5 mg/dL (0.2-1.0); CREATININE 0.7 mg/dL (0.5-1.5); POTASSIUM 3.5 mmol/L (3.5-5.1); TOTAL PROTEIN, SERUM 5.2 g/dL (6.0-8.3)
[2019-06-24] MEDS: SUCRALFATE 1 GM TABLET PO SCH ×4 (06:44→19:36)
[2019-06-24] MEDS: LACTOBACILLUS RHAMNOSUS GG 1 EACH CAP.SPRINK PO SCH (08:00)
[2019-06-24] MEDS: LIPASE/PROTEASE/AMYLASE 5000/17000/24000 PO SCH ×3 (08:00→17:00)
[2019-06-24] MEDS: SODIUM CHLORIDE 0.9% 1000ML 1,000 ML IV SCH ×2 (08:35→19:37)
[2019-06-24] MEDS: THIAMINE HCL 100 MG TABLET PO SCH (09:00)
[2019-06-24] MEDS: FAMOTIDINE/PF 20 MG/2 ML VIAL IV SCH ×2 (09:00→19:31)
[2019-06-24] MEDS: AMOXICILLIN 500 MG CAPSULE PO SCH ×3 (09:00→19:36)
[2019-06-24] MEDS: CLARITHROMYCIN 500 MG TABLET PO SCH ×3 (09:00→19:37)
[2019-06-24] MEDS: CEFTRIAXONE SODIUM 1 GM IVP SCH (09:45)
[2019-06-24] MEDS ORDERED: PROPOFOL 10 MG/ML 20ML VIAL IV ONE (10:07)
[2019-06-24] MEDS ORDERED: POTASSIUM CHLORIDE 20MEQ/100ML 100 ML IV PRN (12:30)
[2019-06-24] MEDS ORDERED: POTASSIUM CHLORIDE 10% ELIXIR 20 MEQ/15 ML UDCUP PO PRN (12:30)
[2019-06-24] MEDS ORDERED: LIDOCAINE HCL-MPF 1% 2ML VIAL IV PRN (12:30)
[2019-06-24] MEDS ORDERED: POTASSIUM CHLORIDE 20 MEQ ERTAB PO PRN (12:30)
[2019-06-24] MEDS ORDERED: GADODIAMIDE 10 MMOL/20 ML VIAL IV ONE (14:09)
[2019-06-24] MEDS: HYDROCODONE/ACETAMINOPHEN 5/325 MG TAB PO PRN (19:32)
[2019-06-24] MEDS: NORTRIPTYLINE HCL 10 MG PO SCH (19:37)
[2019-06-24] MEDS: HYDROMORPHONE HCL 0.5 MG/0.5 ML ML IVP PRN (20:33)
[2019-06-24] MEDS ORDERED: HYDROMORPHONE HCL 2 MG/ML VIAL ONE (23:33)
[2019-06-25] MEDS ORDERED: HYDROMORPHONE HCL 2 MG/ML VIAL ONE ×3 (03:17→23:51)
[2019-06-25 04:00] VITALS: BP 144/88
[2019-06-25] MEDS: SUCRALFATE 1 GM TABLET PO SCH ×4 (04:47→20:31)
[2019-06-25] MEDS: HYDROMORPHONE HCL 0.5 MG/0.5 ML ML IVP PRN ×4 (05:46→20:36)
[2019-06-25 08:29] VITALS: BP 132/75
[2019-06-25] MEDS: FAMOTIDINE/PF 20 MG/2 ML VIAL IV SCH ×2 (08:37→20:32)
[2019-06-25] MEDS: CEFTRIAXONE SODIUM 1 GM IVP SCH (08:37)
[2019-06-25] MEDS: SODIUM CHLORIDE 0.9% 1000ML 1,000 ML IV SCH ×2 (08:39→23:47)
[2019-06-25] MEDS ORDERED: DICYCLOMINE HCL 10 MG/5 ML ML PO SCH (11:00)
[2019-06-25] MEDS ORDERED: HYDROCODONE/ACETAMINOPHEN 5/325 MG TAB PO PRN (11:00)
[2019-06-25 11:31] VITALS: BP 127/78
[2019-06-25] MEDS: THIAMINE HCL 100 MG TABLET PO SCH (11:42)
[2019-06-25] MEDS: AMOXICILLIN 500 MG CAPSULE PO SCH ×2 (11:46→20:31)
[2019-06-25] MEDS: LIPASE/PROTEASE/AMYLASE 5000/17000/24000 PO SCH ×3 (11:46→17:29)
[2019-06-25] MEDS: CLARITHROMYCIN 500 MG TABLET PO SCH ×2 (11:47→20:31)
[2019-06-25] MEDS: LACTOBACILLUS RHAMNOSUS GG 1 EACH CAP.SPRINK PO SCH (11:47)
--- NOTE | 2019-06-25 14:24 | NUR ---
RD FOLLOW UP PER MD, ENZYMES WERE INCREASING ON CLEAR LIQUIDS, SO PT WAS BACK NPO. S/P ASCITES REMOVAL 2.5L ON 06/24/19. GI SAW PT TODAY - PT BACK ON CLEAR LIQUID DIET. PT HAS NOT BEEN ABLE TO DRINK MUCH NOR EAT ANYTHING SOLID IN SEVERAL DAYS NOW EVEN PRIOR TO ADMISSION PER PT. PT IS CLASSIFIED PCM. LBM: 06/20 NOTED. RN STATED PT HAS BEEN HAVING ABDOMINAL PAIN CONSISTENTLY SINCE ADMISSION, HOWEVER TODAY WHILE PT HAS BEEN ON CLEAR LIQUIDS, RN STATED PT HAVING ABDOMINAL CRAMPS MORE OFTEN AFTER DRINKING LIQUIDS VS NPO. RD RECOMMENDS TO MONITOR PO TOLERANCE, LABS, BM CONSIDER TOTAL PARENTERAL NUTRITION IF PT SYMPTOMS AND LABS ARE NOT IMPROVING RD WILL CONTINUE TO MONITOR AND FOLLOW UP TOMORROW Addendum: 06/25/19 at [address] Amended: Links added.
--- NOTE | 2019-06-25 16:09 | NUR ---
i SPOKE TO DR MONTGOMERY ON THE PHONE AND HE STATED HE WOULD SEE PATIENT TOMORROW.
[2019-06-25 16:44] VITALS: BP 150/85
[2019-06-25] MEDS: DICYCLOMINE HCL 20 MG TAB PO SCH ×2 (17:30→20:31)
[2019-06-25 19:52] VITALS: BP 139/83
[2019-06-25] MEDS: NORTRIPTYLINE HCL 10 MG PO SCH (20:39)
[2019-06-26 00:12] VITALS: BP 127/77
[2019-06-26] MEDS ORDERED: HYDROMORPHONE HCL 2 MG/ML VIAL ONE (03:13)
[2019-06-26 04:39] VITALS: BP 132/79
[2019-06-26] MEDS: SUCRALFATE 1 GM TABLET PO SCH ×4 (07:30→20:37)
[2019-06-26 07:33] VITALS: BP 129/78
[2019-06-26 07:36] LABS: BASOPHILS % (AUTO) 0.9 % (0.0-5.0); HEMATOCRIT 30.3 % (42-54); LYMPHOCYTES % (AUTO) 14.3 % (21.0-51.0); MEAN CORPUSCULAR HEMOGLOBIN 27.4 pg (27.0-33.0); MEAN CORPUSCULAR HGB CONC 31.7 g/dL (32.0-36.0); MEAN CORPUSCULAR VOLUME 86.6 fL (79-99); NEUTROPHILS % (AUTO) 48.2 % (40.0-77.0); PLATELET COUNT (AUTO) 359 K/uL (130-400); RED CELL DISTRIBUTION WIDTH 13.6 % (11.0-15.5); WHITE BLOOD COUNT (AUTO) 6.9 K/uL (4.8-10.8)
[2019-06-26] MEDS: LIPASE/PROTEASE/AMYLASE 5000/17000/24000 PO SCH ×3 (08:00→16:39)
[2019-06-26] MEDS: LACTOBACILLUS RHAMNOSUS GG 1 EACH CAP.SPRINK PO SCH (08:00)
[2019-06-26 08:17] LABS: BILIRUBIN,TOTAL 0.3 mg/dL (0.2-1.0); CREATININE 0.7 mg/dL (0.5-1.5); POTASSIUM 3.3 mmol/L (3.5-5.1); TOTAL PROTEIN, SERUM 5.2 g/dL (6.0-8.3)
[2019-06-26] MEDS: FAMOTIDINE/PF 20 MG/2 ML VIAL IV SCH ×2 (08:52→20:37)
[2019-06-26] MEDS: CEFTRIAXONE SODIUM 1 GM IVP SCH (08:53)
[2019-06-26] MEDS: AMOXICILLIN 500 MG CAPSULE PO SCH ×2 (09:00→20:37)
[2019-06-26] MEDS: CLARITHROMYCIN 500 MG TABLET PO SCH ×2 (09:00→20:37)
[2019-06-26] MEDS: DICYCLOMINE HCL 20 MG TAB PO SCH ×3 (09:00→20:37)
[2019-06-26] MEDS: THIAMINE HCL 100 MG TABLET PO SCH (09:00)
[2019-06-26] MEDS: SODIUM CHLORIDE 0.9% 1000ML 1,000 ML IV SCH (11:21)
[2019-06-26] MEDS: HYDROMORPHONE HCL 0.5 MG/0.5 ML ML IVP PRN ×2 (11:23→20:43)
[2019-06-26 11:58] VITALS: BP 128/75
--- NOTE | 2019-06-26 13:47 | NUR ---
I HAVE CALLED AND LEFT A MESSAGE WITH [employer]USTRIAL [employer]F PLUMBER IN REGARDS TO RECOMENDATIONS NEEDED TO START PPN NUTRITION; PENDING CALL SATYA
--- NOTE | 2019-06-26 14:23 | NUR ---
START PPN USING CLINIMIX 4.25/5 START PPN USING CLINIMIX 4.25/5 AT 70ML/HR THIS PROVIDES: 571KCAL/D, 1680ML/D, 71GM PROTEIN/D, 84GM DEXTROSE/D ADD 10ML MULTIVITAMINS DO NOT ADD INTRALIPIDS- DUE TO ELEVATED ENZYMES MONITOR CMP, PHOS, MG, BG, AND POTASSIUM RD WILL CONTINUE TO MONITOR AND FOLLOW UP, THANK YOU. Addendum: 06/26/19 at [address] Amended: Links added.
[2019-06-26] MEDS ORDERED: M.V.I. IV [ADULT] 10 ML in CLINIMIX E 4.25%-5% SOLUTION 2,000 ML IV SCH (15:15)
[2019-06-26 16:00] VITALS: BP 121/70
[2019-06-26 19:57] VITALS: BP 134/90
[2019-06-26] MEDS: NORTRIPTYLINE HCL 10 MG PO SCH (20:38)
[2019-06-27] VITALS (7 sets, daily range): BP systolic 114–147; BP diastolic 61–84
[2019-06-27] MEDS: SODIUM CHLORIDE 0.9% 1000ML 1,000 ML IV SCH ×2 (04:14→17:18)
[2019-06-27] MEDS: SUCRALFATE 1 GM TABLET PO SCH ×4 (04:15→20:57)
[2019-06-27 05:32] LABS: HEMATOCRIT 30.2 % (42-54); MEAN CORPUSCULAR HEMOGLOBIN 27.1 pg (27.0-33.0); MEAN CORPUSCULAR HGB CONC 31.5 g/dL (32.0-36.0); MEAN CORPUSCULAR VOLUME 86.3 fL (79-99); PLATELET COUNT (AUTO) 359 K/uL (130-400); RED CELL DISTRIBUTION WIDTH 13.4 % (11.0-15.5); WHITE BLOOD COUNT (AUTO) 5.8 K/uL (4.8-10.8)
[2019-06-27 06:04] LABS: ALBUMIN 1.9 g/dL (3.5-5.0); BILIRUBIN,TOTAL 0.3 mg/dL (0.2-1.0); CREATININE 0.7 mg/dL (0.5-1.5); MAGNESIUM 1.7 mg/dL (1.80-2.40); PHOSPHORUS 4.2 mg/dL (2.5-4.9); POTASSIUM 3.5 mmol/L (3.5-5.1)
[2019-06-27] MEDS: LACTOBACILLUS RHAMNOSUS GG 1 EACH CAP.SPRINK PO SCH (08:00)
[2019-06-27] MEDS: LIPASE/PROTEASE/AMYLASE 5000/17000/24000 PO SCH ×3 (08:00→17:00)
[2019-06-27] MEDS: THIAMINE HCL 100 MG TABLET PO SCH (09:00)
[2019-06-27] MEDS: CLARITHROMYCIN 500 MG TABLET PO SCH ×2 (09:00→20:56)
[2019-06-27] MEDS: DICYCLOMINE HCL 20 MG TAB PO SCH ×3 (09:00→20:56)
[2019-06-27] MEDS: AMOXICILLIN 500 MG CAPSULE PO SCH ×2 (09:00→20:56)
[2019-06-27] MEDS: FAMOTIDINE/PF 20 MG/2 ML VIAL IV SCH ×2 (10:43→20:56)
[2019-06-27] MEDS: CEFTRIAXONE SODIUM 1 GM IVP SCH (10:47)
--- NOTE | 2019-06-27 12:45 | NUR ---
Nutrition Follow-up: Pt. NPO receiving PPN 4.25/5@70ml/hr. PPN provides 571kcal and 71gm protein daily. Labs reviewed(Alb 1.9, BG 117, Lipase 863, t. Calcium 8.1). LBM: 06/27/2019, per pt. SR-19, elastic. Recommendations: 1) Continue current PPN. 2) Rec. do not add Intralipids due to elevated enzymes. 3) Continue to monitor pt's nutritional status. 4) Consult RD as nutrition concerns arise. Addendum: 06/27/19 at [address] Amended: Links added.
[2019-06-27] MEDS ORDERED: M.V.I. IV [ADULT] 10 ML in CLINIMIX E 4.25%-5% SOLUTION 2,000 ML IV SCH (14:00)
[2019-06-27] MEDS: PANTOPRAZOLE SODIUM 40 MG TABLET.DR PO SCH (17:07)
[2019-06-27] MEDS ORDERED: PANTOPRAZOLE 40 MG/VIAL IVP SCH (17:15)
[2019-06-27] MEDS ORDERED: KETOROLAC TROMETHAMINE 30MG/ML ONE (17:22)
[2019-06-27] MEDS: KETOROLAC TROMETHAMINE 30MG/ML IV PRN (17:27)
[2019-06-27] MEDS: NORTRIPTYLINE HCL 10 MG PO SCH (21:00)
[2019-06-27] MEDS: HYOSCYAMINE SULFATE 0.125 MG TAB.SUBL SL PRN (22:13)
[2019-06-28 04:30] VITALS: BP 125/76
[2019-06-28] MEDS: SODIUM CHLORIDE 0.9% 1000ML 1,000 ML IV SCH (05:55)
[2019-06-28] MEDS: SUCRALFATE 1 GM TABLET PO SCH ×4 (07:30→20:42)
[2019-06-28 07:40] VITALS: BP 129/78
[2019-06-28] MEDS: LIPASE/PROTEASE/AMYLASE 5000/17000/24000 PO SCH ×3 (08:00→17:00)
[2019-06-28] MEDS: LACTOBACILLUS RHAMNOSUS GG 1 EACH CAP.SPRINK PO SCH (08:00)
[2019-06-28] MEDS: THIAMINE HCL 100 MG TABLET PO SCH (09:00)
[2019-06-28] MEDS: AMOXICILLIN 500 MG CAPSULE PO SCH (09:00)
[2019-06-28] MEDS: CLARITHROMYCIN 500 MG TABLET PO SCH (09:00)
[2019-06-28] MEDS: DICYCLOMINE HCL 20 MG TAB PO SCH ×3 (09:00→20:42)
[2019-06-28] MEDS: CEFTRIAXONE SODIUM 1 GM IVP SCH (09:45)
[2019-06-28] MEDS: PANTOPRAZOLE SODIUM 40 MG TABLET.DR PO SCH (10:16)
[2019-06-28] MEDS: FAMOTIDINE/PF 20 MG/2 ML VIAL IV SCH ×2 (10:16→20:41)
[2019-06-28 10:59] VITALS: BP 112/75
[2019-06-28 15:50] VITALS: BP 118/76
[2019-06-28] MEDS ORDERED: M.V.I. IV [ADULT] 10 ML in CLINIMIX E 4.25%-5% SOLUTION 2,000 ML IV SCH (17:00)
[2019-06-28] MEDS: HYOSCYAMINE SULFATE 0.125 MG TAB.SUBL SL PRN (17:09)
[2019-06-28] MEDS: KETOROLAC TROMETHAMINE 30MG/ML IV PRN (17:44)
[2019-06-28 19:05] VITALS: BP 103/65
[2019-06-28] MEDS: NORTRIPTYLINE HCL 10 MG PO SCH (20:42)
[2019-06-28 23:07] VITALS: BP 99/66
[2019-06-29] MEDS: SODIUM CHLORIDE 0.9% 1000ML 1,000 ML IV SCH ×3 (02:02→21:55)
[2019-06-29 03:31] VITALS: BP 114/75
[2019-06-29 05:34] LABS: BASOPHILS % (AUTO) 0.8 % (0.0-5.0); EOSINOPHILS % (AUTO) 23.2 % (0.0-8.0); HEMATOCRIT 30.1 % (42-54); LYMPHOCYTES % (AUTO) 17.8 % (21.0-51.0); MEAN CORPUSCULAR HGB CONC 30.9 g/dL (32.0-36.0); MEAN CORPUSCULAR VOLUME 87.2 fL (79-99); NEUTROPHILS % (AUTO) 48.8 % (40.0-77.0); PLATELET COUNT (AUTO) 334 K/uL (130-400); RED BLOOD CELL COUNT(AUTO) 3.45 MIL/uL (4.50-6.20); RED CELL DISTRIBUTION WIDTH 13.6 % (11.0-15.5); WHITE BLOOD COUNT (AUTO) 5.1 K/uL (4.8-10.8)
[2019-06-29 06:10] LABS: ALBUMIN 1.9 g/dL (3.5-5.0); BILIRUBIN,TOTAL 0.2 mg/dL (0.2-1.0); CREATININE 0.7 mg/dL (0.5-1.5); POTASSIUM 3.8 mmol/L (3.5-5.1)
[2019-06-29] MEDS: SUCRALFATE 1 GM TABLET PO SCH ×4 (07:30→21:00)
[2019-06-29 08:00] VITALS: BP 106/67
[2019-06-29] MEDS: PANTOPRAZOLE SODIUM 40 MG TABLET.DR PO SCH (10:04)
[2019-06-29] MEDS: LIPASE/PROTEASE/AMYLASE 5000/17000/24000 PO SCH ×3 (10:07→16:47)
[2019-06-29] MEDS: THIAMINE HCL 100 MG TABLET PO SCH (10:08)
[2019-06-29] MEDS: DICYCLOMINE HCL 20 MG TAB PO SCH ×3 (10:08→21:00)
[2019-06-29] MEDS: FAMOTIDINE/PF 20 MG/2 ML VIAL IV SCH ×2 (10:08→20:52)
[2019-06-29] MEDS: LACTOBACILLUS RHAMNOSUS GG 1 EACH CAP.SPRINK PO SCH (10:08)
[2019-06-29] MEDS: CEFTRIAXONE SODIUM 1 GM IVP SCH (10:09)
[2019-06-29 11:00] VITALS: BP 96/59
[2019-06-29] MEDS: HYOSCYAMINE SULFATE 0.125 MG TAB.SUBL SL PRN ×2 (13:24→21:04)
[2019-06-29] MEDS: KETOROLAC TROMETHAMINE 30MG/ML IV PRN ×2 (15:05→23:03)
[2019-06-29 16:00] VITALS: BP 109/68
[2019-06-29] MEDS ORDERED: M.V.I. IV [ADULT] 10 ML in CLINIMIX E 4.25%-5% SOLUTION 2,000 ML IV SCH (17:30)
[2019-06-29 19:04] VITALS: BP 105/69
[2019-06-29] MEDS: NORTRIPTYLINE HCL 10 MG PO SCH (21:00)
[2019-06-29 23:00] VITALS: BP 119/74
[2019-06-30 03:14] VITALS: BP 107/70
[2019-06-30 06:27] LABS: BASOPHILS % (AUTO) 1.4 % (0.0-5.0); EOSINOPHILS % (AUTO) 20.7 % (0.0-8.0); HEMATOCRIT 30.1 % (42-54); MEAN CORPUSCULAR HEMOGLOBIN 27.5 pg (27.0-33.0); MEAN CORPUSCULAR HGB CONC 31.6 g/dL (32.0-36.0); MONOCYTES % (AUTO) 9.3 % (3.0-13.0); NEUTROPHILS % (AUTO) 47.1 % (40.0-77.0); PLATELET COUNT (AUTO) 330 K/uL (130-400); RED BLOOD CELL COUNT(AUTO) 3.46 MIL/uL (4.50-6.20); RED CELL DISTRIBUTION WIDTH 13.6 % (11.0-15.5); WHITE BLOOD COUNT (AUTO) 4.4 K/uL (4.8-10.8)
[2019-06-30 07:23] LABS: ALBUMIN 1.9 g/dL (3.5-5.0); BILIRUBIN,TOTAL 0.1 mg/dL (0.2-1.0); CREATININE 0.7 mg/dL (0.5-1.5); POTASSIUM 4.2 mmol/L (3.5-5.1)
[2019-06-30 08:00] VITALS: BP 106/78
[2019-06-30] MEDS: DICYCLOMINE HCL 20 MG TAB PO SCH ×3 (09:17→20:44)
[2019-06-30] MEDS: CEFTRIAXONE SODIUM 1 GM IVP SCH (09:17)
[2019-06-30] MEDS: FAMOTIDINE/PF 20 MG/2 ML VIAL IV SCH ×2 (09:17→20:37)
[2019-06-30] MEDS: PANTOPRAZOLE SODIUM 40 MG TABLET.DR PO SCH (09:17)
[2019-06-30] MEDS: THIAMINE HCL 100 MG TABLET PO SCH (09:17)
[2019-06-30] MEDS: LACTOBACILLUS RHAMNOSUS GG 1 EACH CAP.SPRINK PO SCH (09:17)
[2019-06-30] MEDS: SUCRALFATE 1 GM TABLET PO SCH ×4 (09:17→20:44)
[2019-06-30] MEDS: LIPASE/PROTEASE/AMYLASE 5000/17000/24000 PO SCH ×3 (09:18→17:28)
--- NOTE | 2019-06-30 10:46 | NUR ---
DR MARCOS/BOOGIE CALLED REGARING FOLLOW UP OF PT STATUS SPOKE TO AZRA AT GI OFFICE- STATED DR MARCOS OUT OF TOWN BUT SHE WILL LET DR DORADO KNOW/ PENDING CB
[2019-06-30] MEDS: SODIUM CHLORIDE 0.9% 1000ML 1,000 ML IV SCH (11:02)
[2019-06-30 11:56] VITALS: BP 111/64
--- NOTE | 2019-06-30 12:15 | NUR ---
DR DORADO CALLED BACK STATED THERE ARE NO FURTHER ORDERS FOR THIS PATIENT. HE NEEDS TO SEE DR COOMBS IN FOR CHRONIC PANCREATITIS AND IF WE CANNOT TRANSFER PT FROM HOSPITAL TO HOSPITAL, WE CAN DC AND HAVE HIM FOLLOW UP WITH DR DORADO IN OFFICE AND GO FROM THERE. HOSPITALIST/DR HANSEN MADE AWARE.
--- NOTE | 2019-06-30 13:45 | NUR ---
RD FOLLOW UP Pt continues not to tolerate foods PO. Recommend Total Parental Nutrition secondary to significant wt loss of 40# within 2-3 mos. in addition to poor PO x3mos. and current PPN not meeting nutrition needs. Recommend to initiate TPN Clinimix @70mls/hr (1193kcal/84gm Protein). Recommendations placed in Pt chart. RN to contact MD. MAYA to follow up. Please notify RD as additional nutrition concerns arise. Thank you. Addendum: 06/30/19 at [address] Amended: Links added.
--- NOTE | 2019-06-30 15:50 | NUR ---
1354 transfer request for higher level of to [facility] for higher level of care GI service DR Zavala recommended Dr Jean-Baptiste. [address] to transfer center at [facility]. [phone] spoke intake nurse Jaron information fax to [phone]. as per Jaron information will be sent to administration for review and will call back . 7143 Met with pt inform of transfer process verbalized understanding. Aniceto french
[2019-06-30 16:00] VITALS: BP 107/65
[2019-06-30] MEDS ORDERED: M.V.I. IV [ADULT] 10 ML in CLINIMIX E 5%-15% 2,000 ML IV SCH (18:00)
[2019-06-30 19:15] VITALS: BP 117/67
--- NOTE | 2019-06-30 19:30 | NUR ---
`1929 Transfer center coordinator call back with a denial for no bed full to capacity but would try again in Am. report to incoming BERNICE Moreland rn
--- NOTE | 2019-06-30 19:37 | NUR ---
pt and primary nurse made aware no beds at [facility] will try again tomorrow verbalized understanding . Aniceto french
[2019-06-30] MEDS: KETOROLAC TROMETHAMINE 30MG/ML IV PRN (20:38)
[2019-06-30] MEDS: NORTRIPTYLINE HCL 10 MG PO SCH (20:44)
[2019-06-30 23:57] VITALS: BP 123/75
[2019-07-01 03:20] VITALS: BP 115/72
[2019-07-01 04:39] LABS: BASOPHILS % (AUTO) 0.9 % (0.0-5.0); EOSINOPHILS % (AUTO) 20.3 % (0.0-8.0); HEMATOCRIT 30.3 % (42-54); LYMPHOCYTES % (AUTO) 20.9 % (21.0-51.0); MEAN CORPUSCULAR HEMOGLOBIN 27.1 pg (27.0-33.0); MEAN CORPUSCULAR HGB CONC 30.7 g/dL (32.0-36.0); MEAN CORPUSCULAR VOLUME 88.3 fL (79-99); MONOCYTES % (AUTO) 9.4 % (3.0-13.0); NEUTROPHILS % (AUTO) 48.1 % (40.0-77.0); PLATELET COUNT (AUTO) 329 K/uL (130-400); RED BLOOD CELL COUNT(AUTO) 3.43 MIL/uL (4.50-6.20); RED CELL DISTRIBUTION WIDTH 13.5 % (11.0-15.5); WHITE BLOOD COUNT (AUTO) 5.6 K/uL (4.8-10.8)
[2019-07-01 04:57] LABS: ALBUMIN 1.9 g/dL (3.5-5.0); BILIRUBIN,TOTAL 0.2 mg/dL (0.2-1.0); CREATININE 0.8 mg/dL (0.5-1.5); TOTAL PROTEIN, SERUM 4.8 g/dL (6.0-8.3)
[2019-07-01] MEDS: SODIUM CHLORIDE 0.9% 1000ML 1,000 ML IV SCH ×3 (05:28→21:57)
[2019-07-01 08:00] VITALS: BP 125/68
[2019-07-01] MEDS: DICYCLOMINE HCL 20 MG TAB PO SCH ×3 (09:00→21:01)
[2019-07-01] MEDS: THIAMINE HCL 100 MG TABLET PO SCH (10:47)
[2019-07-01] MEDS: PANTOPRAZOLE SODIUM 40 MG TABLET.DR PO SCH (10:47)
[2019-07-01] MEDS: LACTOBACILLUS RHAMNOSUS GG 1 EACH CAP.SPRINK PO SCH (10:47)
[2019-07-01] MEDS: SUCRALFATE 1 GM TABLET PO SCH ×4 (10:48→21:01)
[2019-07-01] MEDS: FAMOTIDINE/PF 20 MG/2 ML VIAL IV SCH ×2 (10:56→21:01)
[2019-07-01] MEDS: LIPASE/PROTEASE/AMYLASE 5000/17000/24000 PO SCH ×3 (10:56→17:25)
--- NOTE | 2019-07-01 11:30 | NUR ---
TRANSFER PLACED A CALL TO [facility] @ [phone] SPOKE WITH DIMA PROFESSOR OF LITERATURE FOLLOWING UP ON THE TRANSFER FOR HIGHER LEVEL OF CARE. SHE STATED THAT THEY ARE AT CAPACITY, NO BEDS AVAILABLE AT THIS TIME. PRIMARY NURSE INFORMED.
[2019-07-01 11:55] VITALS: BP 111/53
[2019-07-01 16:00] VITALS: BP 109/62
--- NOTE | 2019-07-01 16:29 | NUR ---
RD UPDATE TPN initiated on 06/30/19, 18:00 @70mls/hr (1193kcal/84g protein). Intralipid contraindicated. Monitored labs: Ca 8.2, Alb 1.9, Lipase decrease from 3306 to 2915. Pending transfer for higher level of care.
[2019-07-01] MEDS ORDERED: M.V.I. IV [ADULT] 10 ML in CLINIMIX E 4.25%-5% SOLUTION 2,000 ML IV SCH (18:45)
[2019-07-01 19:15] VITALS: BP 108/71
[2019-07-01] MEDS: NORTRIPTYLINE HCL 10 MG PO SCH (21:00)
[2019-07-01 23:52] VITALS: BP 125/81
[2019-07-02 03:20] VITALS: BP 105/62
[2019-07-02] MEDS: SUCRALFATE 1 GM TABLET PO SCH (05:25)
[2019-07-02 05:29] LABS: BASOPHILS % (AUTO) 1.1 % (0.0-5.0); EOSINOPHILS % (AUTO) 19.1 % (0.0-8.0); HEMATOCRIT 33.9 % (42-54); LYMPHOCYTES % (AUTO) 24.9 % (21.0-51.0); MEAN CORPUSCULAR HEMOGLOBIN 27.3 pg (27.0-33.0); MEAN CORPUSCULAR HGB CONC 30.7 g/dL (32.0-36.0); MONOCYTES % (AUTO) 9.5 % (3.0-13.0); NEUTROPHILS % (AUTO) 44.8 % (40.0-77.0); PLATELET COUNT (AUTO) 447 K/uL (130-400); RED BLOOD CELL COUNT(AUTO) 3.81 MIL/uL (4.50-6.20); RED CELL DISTRIBUTION WIDTH 13.7 % (11.0-15.5)
[2019-07-02 05:46] LABS: CREATININE 0.9 mg/dL (0.5-1.5); POTASSIUM 3.7 mmol/L (3.5-5.1)
[2019-07-02 07:44] VITALS: BP 112/72
--- NOTE | 2019-07-02 08:59 | NUR ---
6128 transfer follow up phone call place to [facility] hosp spoke with Joanne intake nurse denied hosp full to capacity can try again tomorrow pt and primary nurse will be advise of the above. Aniceto french
[2019-07-02] MEDS: LIPASE/PROTEASE/AMYLASE 5000/17000/24000 PO SCH (09:53)
[2019-07-02] MEDS: FAMOTIDINE/PF 20 MG/2 ML VIAL IV SCH (09:53)
[2019-07-02] MEDS: PANTOPRAZOLE SODIUM 40 MG TABLET.DR PO SCH (09:53)
[2019-07-02] MEDS: THIAMINE HCL 100 MG TABLET PO SCH (09:53)
[2019-07-02] MEDS: LACTOBACILLUS RHAMNOSUS GG 1 EACH CAP.SPRINK PO SCH (09:53)
[2019-07-02] MEDS: DICYCLOMINE HCL 20 MG TAB PO SCH (09:54)
[2019-07-02 11:12] VITALS: BP 97/63
[2019-07-02] MEDS ORDERED: ACET1TAB12 PO (11:46)
--- NOTE | 2019-07-02 16:10 | NUR ---
1400 late entry call placed to [place] intake nurse Alison of pt being DC transfer with drawn verbalized understanding. Aniceto french
== END 2019-07-02 13:18 | disposition home or self-care (01) | DRG 438 ==
LOC: EDH 09:54 → EDHIP 09:55 → 4AH 14:40 → 4BH 06-30 06:30
PROVIDERS: ADMIT Internal Medicine; ATTEND Internal Medicine
PROC: 0W9G3ZZ Drainage of Peritoneal Cavity, Percutaneous Approach (ICD-10-PCS; 2019-06-23)
PROC: 0DJ08ZZ Inspection of Upper Intestinal Tract, Via Natural or Artificial Opening Endoscopic (ICD-10-PCS; principal; 2019-06-24)
DX: K85.90 Acute pancreatitis without necrosis or infection, unspecified (principal); E43 Unspecified severe protein-calorie malnutrition; R18.8 Other ascites; K86.3 Pseudocyst of pancreas; J98.11 Atelectasis; Z68.1 Body mass index [BMI] 19.9 or less, adult; K52.9 Noninfective gastroenteritis and colitis, unspecified; K86.1 Other chronic pancreatitis; K57.90 Diverticulosis of intestine, part unspecified, without perforation or abscess without bleeding; K81.1 Chronic cholecystitis; K82.8 Other specified diseases of gallbladder; M10.9 Gout, unspecified
CPT/HCPCS: 36415; 43237; 49083; 71045; 74018; 74178; 74183; 76700; 78227; 80048; 80053; 80305; 81003; 82105; 82150; 82378; 82550; 83615; 83690; 83735; 83986; 84100; 84157; 84484; 85025; 85027; 85610; 85730; 87071; 87205; 89051; 93005; A9537; A9579; C9113; G0378; J0696; J1170; J1885; J2270; J2405; J2704; J3490; J7030; Q9963; Q9967